=== PATIENT | male | born 1985 | race Caucasian/White ===

== ENCOUNTER 2021-08-20 16:40 | Emergency (ER) | payer BC ==
[2021-08-20 17:44] LABS: CORONAVIRUS COVID-19 NAA POSITIVE (NEGATIVE); INFLUENZA A NAA NEGATIVE (NEGATIVE); INFLUENZA B NAA NEGATIVE (NEGATIVE)
== END 2021-08-20 18:16 | disposition home or self-care (01) ==
LOC: MW.ED 16:40
DX: U07.1 COVID-19 (principal)
CPT/HCPCS: 0240U; 87070; 87880; 99283; 99282